=== PATIENT | female | born 1990 | race Caucasian/White ===

== ENCOUNTER 2018-09-18 08:00 | Outpatient (CLI) | payer OTHER ==
[2018-09-18 13:07] LABS: BASOPHILS % (AUTO) 0.5 %; EOSINOPHILS # (AUTO) 0.2 10^3/uL (0.0-0.7); HGB - HEMOGLOBIN 14.5 g/dL (12.0-16.0); LYMPHOCYTES # (AUTO) 1.7 10^3/uL (1.5-3.5); LYMPHOCYTES % (AUTO) 32.1 %; MEAN CORPUSCULAR HEMOGLOBIN 31.2 pg (27.0-31.0); MEAN CORPUSCULAR HGB CONC 33.6 g/dL (32.0-36.0); MEAN CORPUSCULAR VOLUME 92.9 fL (81.0-99.0); MEAN PLATELET VOLUME 8.2 fL (7.9-10.8); MONOCYTES # (AUTO) 0.4 10^3/uL (0.0-1.0); MONOCYTES % (AUTO) 7.4 %; PLT - PLATELET COUNT 315 10^3/uL (130-450); RED BLOOD COUNT 4.64 10^6/uL (4.20-5.40); WHITE BLOOD COUNT 5.4 x10^3/uL (4.8-10.8)
[2018-09-18 13:27] LABS: ALBUMIN 4.3 g/dL (3.2-5.5); ALBUMIN/GLOBULIN RATIO 1.5 (1.0-2.2); BILIRUBIN,TOTAL 0.8 mg/dL (0.2-1.0); CALCIUM 8.6 mg/dL (8.5-10.3); CREATININE 0.5 mg/dL (0.4-1.0); TOTAL PROTEIN 7.2 g/dL (6.7-8.2)
[2018-09-18 13:39] LABS: THYROID STIMULATING HORMONE 1.17 uIU/mL (0.34-5.60)
[2018-09-18 13:47] LABS: FOLATE 9.98 ng/mL (5.90 - >24.8)
== END 2018-09-18 23:59 | disposition home or self-care (01) ==
LOC: LAB.N 08:00
PROVIDERS: ATTEND Nurse Practitioner
DX: E06.3 Autoimmune thyroiditis (principal); E55.9 Vitamin D deficiency, unspecified; R53.83 Other fatigue
CPT/HCPCS: 36415; 80053; 82306; 82607; 82746; 84443; 85025; 86376; 86800

== ENCOUNTER 2018-09-27 21:01 | Outpatient (CLI) | payer OTHER ==
--- NOTE | 2018-09-27 22:07 | Ultrasound Report ---
Reason: LYMPHADENITIS,CERVICAL,JANELLE'S THYROIDITIS Procedure Date: 09/27/2018 Accession Number: [id number] / [id number] Procedure: US - Head or Neck Soft Tissue CPT Code: FULL RESULT: EXAM: THYROID ULTRASOUND EXAM DATE: 09/27/2018 09:15 PM. CLINICAL HISTORY: LYMPHADENITIS,CERVICAL,HASHIMOTOS THYROIDITIS. COMPARISON: None. TECHNIQUE: Real time sonographic imaging of the thyroid was performed by the cleaning supervisor. Multiple support representative static images were saved for review. FINDINGS: THYROID GLAND: Right Lobe: 5.2 x 1.9 x 1.6 cm, volume 8 cc. Heterogeneous background echotexture. Right Lobe Nodules: 3 mm hypoechoic circumscribed nodule in the midportion. 2 mm cyst in the upper pole. Left Lobe: 5.2 x 1.6 x 1.1 cm, volume 5 cc. Heterogeneous background echotexture. Left Lobe Nodules: Two 2 mm cysts. Isthmus: 0.2 cm AP. Isthmic Nodules: None. LYMPH NODES: No adenopathy demonstrated in the central or lateral compartment. OTHER: None. IMPRESSION: Heterogeneous thyroid parenchyma. Tiny nodules. No suspicious nodule is identified. Management recommendations are based on 2015 [place] [employer] Management Guidelines for Adult Patients with Thyroid Nodules and Differentiated Thyroid Cancer. RADIA
== END 2018-09-27 21:02 | disposition home or self-care (01) ==
LOC: DI 21:01
PROVIDERS: ATTEND Nurse Practitioner
DX: E04.2 Nontoxic multinodular goiter (principal); E06.3 Autoimmune thyroiditis; L04.8 Acute lymphadenitis of other sites
CPT/HCPCS: 76536